=== PATIENT | male | born 1995 | race Caucasian/White ===

== ENCOUNTER 2022-06-18 14:59 | Emergency (ER) | payer MEDICAID ==
[~2022-06-18] VITALS: Ht 180.3 cm; Wt 90.7 kg
--- NOTE | 2022-06-18 15:00 | NUR ---
Katiuska morrowyeimy in ED - 06/18/22 at 1609 by JOSH RECEIVED PT 26 YRS MALE CAME BY AMIRAH FROM HOME FOR EVALUATION OF SI OVER DOSE
--- NOTE | 2022-06-18 15:00 | NUR ---
RECEIVED PT 26 yrs male came from [facility]AB facillity calld by shiver and side he was done PT took a bpttle of 2Methyl/2batanol PTflat affection and SI precaution intated sitter at bed side SEBASTIAN one to one sitter
--- NOTE | 2022-06-18 15:10 | NUR ---
SEEN by DR. GABRIEL
--- NOTE | 2022-06-18 15:15 | NUR ---
BLood DROW BY LAB TACH AT BED side
--- NOTE | 2022-06-18 15:46 | NUR ---
CALLED [facility] REGARDING PT CONDITION THEY SUGGESTED... 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 - WILL GIVE A CALL BACK ONCE LAB WORK HAS BEENB RESULTED SO THAT DR. GABRIEL CAN RUN THROUGH THE LAB RESULTS
[2022-06-18 15:57] LABS: BASOPHILS % (AUTO) 0.8 % (0.0-2.0); EOSINOPHILS % (AUTO) 0.4 % (0.0-6.0); HEMATOCRIT 43 % (39-51); HEMOGLOBIN 14.7 g/dL (13.5-17.5); LYMPHOCYTES # (AUTO) 1.3 K/uL (0.8-4.8); LYMPHOCYTES % (AUTO) 21.2 % (20.0-44.0); MEAN CORPUSCULAR HGB CONC 34 g/dl (31.0-36.0); MEAN CORPUSCULAR VOLUME 92 fL (80-96); MONOCYTES # (AUTO) 0.4 K/uL (0.1-1.30); MONOCYTES % (AUTO) 5.7 % (2.0-12.0); NEUTROPHILS # (AUTO) 4.4 K/uL (1.8-8.9); NEUTROPHILS % (AUTO) 71.9 % (43.0-81.0); PLATELET COUNT (AUTO) 275 K/uL (150-450); WHITE BLOOD COUNT (AUTO) 6.2 K/uL (4.3-11.0)
[2022-06-18 16:09] LABS: CARBON DIOXIDE 27 mmol/L (21-32); CHLORIDE 104 mmol/L (98-107); GLUCOSE 102 mg/dL (74-106); POTASSIUM 3.5 mmol/L (3.5-5.1); SODIUM SERUM 141 mmol/L (136-145); UREA NITROGEN, BLOOD 7 mg/dL (7-18)
[2022-06-18 16:15] LABS: ALANINE AMINOTRANSFERASE 16 U/L (12-78); ALBUMIN 4.2 g/dL (3.4-5.0); ALKALINE PHOSPHATASE 69 U/L (46-116); ASPARTATE AMINOTRANSFERASE 18 U/L (15-37); BILIRUBIN,DIRECT 0.2 mg/dL (0.0-0.2); BILIRUBIN,TOTAL 0.7 mg/dL (0.2-1.0); TOTAL PROTEIN, SERUM 7.5 g/dL (6.4-8.2)
[2022-06-18 16:17] LABS: ACETAMINOPHEN < 10 ug/ml (10-30); ALCOHOL, BLOOD < 3 mg/dL (0-0)
--- NOTE | 2022-06-18 16:30 | NUR ---
2 OFFICER [employer] AT BED SIDE 9A37 OFFICER PAAR # [id number] AND OFFICER MILER [id number] INTERVEW PT DINESES SI OR HI OR HEAING VOICES
--- NOTE | 2022-06-18 17:35 | NUR ---
UA SENT TO LAB
[2022-06-18 18:19] LABS: BILIRUBIN,URINE NEGATIVE (NEGATIVE); COLOR,URINE YELLOW (YELLOW); LEUKOCYTE ESTERASE ,URINE NEGATIVE (NEGATIVE); NITRITE, URINE NEGATIVE (NEGATIVE); PROTEIN,URINE NEGATIVE (NEGATIVE); UGLUCOSE NEGATIVE (NEGATIVE); UROBILINOGEN,URINE 0.2 EU/dL (0.2)
--- NOTE | 2022-06-18 19:27 | NUR ---
HAND OFF TRES ÁLVAREZ
--- NOTE | 2022-06-18 20:03 | NUR ---
RECEIVED PATIENT ASLEEP BUT AROUSABLE. ABLE TO MAKE NEEDS KNOWN. AAOX4. WITH IV JUNIOR G18 ON LEFT AC. ATTACHED TO MONITOR. VITALS CHECKED.
--- NOTE | 2022-06-18 20:05 | NUR ---
FROM POISON CALLED TO CHECK ON PATIENT'S PROGRESS. CLINICALS RELAYED. PER PT IS IS DOING CLINICALLY AND WILL CLOSE THE CASE. PT NEEDS PO TRIAL AND IF PT TOLERATED CASE WILL REMAIN CLOSE.
--- NOTE | 2022-06-18 20:21 | NUR ---
PO CHALLENGE TOLERATED BY THE PATIENT
--- NOTE | 2022-06-19 00:46 | NUR ---
CHECKED ON PATIENT, ASLEEP BUT AROUSABLE
--- NOTE | 2022-06-19 02:42 | NUR ---
ARISTIDES CALLLED FOR PSYCH EVAL
--- NOTE | 2022-06-19 03:38 | NUR ---
ARISTIDES AT BEDSIDE FOR PSYCH EVAL
--- NOTE | 2022-06-19 03:46 | NUR ---
Patient discharged to home in stable condition. Written and verbal after care instructions given. Patient verbalizes understanding of instruction.IV removed. Catheter intact and site benign. Pressure and 4x4 applied to site. No bleeding noted. Pt ambulatory with a steady gait
[2022-06-19 03:47] VITALS: BP 121/62
== END 2022-06-19 04:03 | disposition home or self-care (01) ==
LOC: ER 15:01
DX: T14.91XA Suicide attempt, initial encounter (principal); T40.412A Poisoning by fentanyl or fentanyl analogs, intentional self-harm, initial encounter; Y92.89 Other specified places as the place of occurrence of the external cause; Y93.89 Activity, other specified; Y99.8 Other external cause status
CPT/HCPCS: 36415; 80048-TC; 80076-TC; 85025-TC; G0480